=== PATIENT | female | born 1925 | race Caucasian/White ===

== ENCOUNTER 2016-10-15 14:24 | Observation (INO) | payer MEDICARE, OTHER ==
[2016-10-15] MEDS ORDERED: Zofran 4 MG/2 ML VIAL IV ONE (14:39)
[2016-10-15] MEDS ORDERED: Zofran 4 MG/2 ML VIAL ONE (14:53)
[2016-10-15 15:08] LABS: BASOPHIL % 0.1 % (0.0-0.4); Eosinophil % 0.3 % (0.00-5.0); Granulocytes % 69.4 % (36.0-66.0); Mean Cell Volume 89.1 fl (78-100); Mean Corpuscular Hemoglobin 30.1 pg (26-32); Mean Platelet Volume 10.9 fl (6-9.5); Monocytes % 8.2 % (0.0-12.0); Platelet Count 211 K/mm3 (150-450); Red Blood Count 4.48 M/mm3 (4.1-5.4); Red Cell Distribution Width 13.7 % (11.5-14.0); White Blood Count 7.1 K/mm3 (4.0-10.5)
[2016-10-15 15:14] LABS: ALBUMIN 3.9 g/dL (3.4-5.0); ANION GAP 14.6 MEQ/L (5-15); BILIRUBIN,TOTAL 0.3 mg/dL (0.2-1.0); Carbon Dioxide 25.1 mEq/L (21-32); Potassium 4.4 mEq/L (3.5-5.1); Total Protein 7.4 gm/dL (6.4-8.2)
[2016-10-15 15:20] LABS: Bacteria FEW /HPF (NEGATIVE); COMPLETE URINE MICROSCOPIC? YES; Collection Type CATH; Mucus SLIGHT /HPF (NEGATIVE); Ph 5.5 (5-6); WBC 0-2 /HPF (0-5)
--- NOTE | 2016-10-15 15:30 | ERPHSYRPT ---
- History of Present Illness Time Seen by Provider: 10/15/16 14:28 Historian: patient, family (son) Patient Subjective Stated Complaint: vomiting since noon. sinus infection for one week. Triage Nursing Assessment: to room per w/c, color normal, resp easy. abd soft, nontender, normal bowel sounds. Physician History: CC: nausea hx: [address] Ross from home. 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 She has recent sinus drng. Mild nosebleed. Today had nausea and abd pain. No diarrhea today which is unusual. Vomited several times. No fever or chills. Normal urination but has bladder prolapse. No chest pain. Severity of Pain-Max: moderate Severity of Pain-Current: moderate Allergies/Adverse Reactions: Penicillins Allergy (Mild, Verified 10/15/16 14:43) Rash Sulfa (Sulfonamide Antibiotics) [Sulfa(Sulfonamide Antibiotics)] Adverse Reaction (Severe, Verified 10/15/16 14:43) Vomiting meperidine HCl [From Demerol] Adverse Reaction (Intermediate, Verified 10/15/16 14:43) dizzy,vomiting morphine Adverse Reaction (Verified 10/15/16 14:43) Home Medications: Calcitonin,[place],Synthetic [Calcitonin-[place]] 1 spray INTRANASAL DAILY [History] Pravastatin Sodium 10 mg [Pravachol 10 MG] 10 mg PO DAILY 01/06/12 [History] Enalapril Maleate 5 mg [Vasotec 5 MG] 2.5 mg PO DAILY 05/26/13 [History] Aspirin 81 gm Chew [Baby Aspirin 81 mg Chew] 81 mg PO HS 07/10/14 [History ] Alprazolam 0.25 mg [xanAX 0.25 MG] 0.5 tab PO BID 01/29/16 [History] Hx Tetanus, Diphtheria Vaccination/Date Given: No Hx Influenza Vaccination/Date Given: Yes Hx Pneumococcal Vaccination/Date Given: Yes - Review of Systems Constitutional: Malaise, Weakness, No Fever, No Chills Eyes: No Symptoms Ears, Nose, & Throat: No Symptoms Respiratory: No Cough, No Dyspnea Cardiac: No Chest Pain Abdominal/Gastrointestinal: Abdominal Pain, Nausea, Vomiting, No Diarrhea Genitourinary Symptoms: No Dysuria Skin: No Rash Neurological: No Headache All Other Systems: Reviewed and Negative - Past Medical History Pertinent Past Medical History: Yes Neurological History: No Pertinent History ENT History: Cataracts Cardiac History: High Cholesterol, Hypertension Respiratory History: No Pertinent History Endocrine Medical History: No Pertinent History Musculoskeletal History: Arthritis GI Medical History: Diverticulitis History: No Pertinent History Psycho-Social History: Anxiety Female Reproductive Disorders: No Pertinent History Other Medical History: SHINGLes- 5/6 yrs ago - Past Surgical History Past Surgical History: Yes Neuro Surgical History: No Pertinent History Cardiac: No Pertinent History Respiratory: No Pertinent History Gastrointestinal: Appendectomy, Cholecystectomy, Colon Resection Genitourinary: No Pertinent History Musculoskeletal: No Pertinent History Female Surgical History: Hysterectomy Other Surgical History: TONSILLECTOMY, catarat surgery - Social History Smoking Status: Never smoker Exposure to second hand smoke: No Alcohol Use: None Drug Use: none Patient Lives Alone: No Significant Family History: no pertinent family hx - Female History Hx Now: No - Nursing Vital Signs Nursing Vital Signs: Initial Vital Signs Temperature 97.3 F Temperature Source Oral Pulse Rate 90 Respiratory Rate 22 Blood Pressure [Right Arm] 136/79 Pain Intensity 0 - Physical Exam General Appearance: alert Eye Exam: PERRL/EOMI Ears, Nose, Throat Exam: normal ENT inspection, moist mucous membranes Neck Exam: normal inspection, non-tender, supple Respiratory Exam: normal breath sounds, lungs clear Cardiovascular Exam: regular rate/rhythm Gastrointestinal/Abdomen Exam: soft, tenderness (diffuse with some guarding), No distention Back Exam: normal inspection, normal range of motion Extremity Exam: normal inspection, normal range of motion Neurologic Exam: alert, cooperative, No motor deficits Skin Exam: warm, dry, No rash SpO2 Interpretation: normal SpO2: 96 Oxygen Delivery: Room Air - Course Nursing assessment & vital signs reviewed: Yes EKG Interpreted by Me: RATE (89), Sinus Rhythm, NORMAL AXIS, NORMAL INTERVALS ( QTC 442), NORMAL QRS, NORMAL ST-T Ordered Tests: Active Orders 24 hr Category Date Time Status Cath for Specimen-Straight STAT Care 10/15/16 14:39 Active EKG-ER Only STAT Care 10/15/16 14:39 Active IV Insertion STAT Care 10/15/16 14:39 Active NPO (ED) STAT Care 10/15/16 14:39 Active ABDOMEN AND PELVIS W CONTRAST [CT] Stat Exams 10/15/16 14:48 Completed CBC W DIFF Stat Lab 10/15/16 14:45 Completed CMP Stat Lab 10/15/16 14:45 Completed CULTURE,URINE Stat Lab 10/15/16 15:00 Received LIPASE Stat Lab 10/15/16 14:45 Completed Lactic Acid Urgent Lab 10/15/16 14:39 Completed UA W/ MICROSCOPIC Stat Lab 10/15/16 15:00 Completed Medication Summary Discontinued Medications Generic Name Dose Route Start Last Admin Trade Name Freq PRN Reason Stop Dose Admin Famotidine 20 mg 10/15/16 16:29 10/15/16 16:32 Pepcid 20 Mg Vial IV 10/15/16 16:30 20 mg STAT ONE Administration Famotidine Confirm 10/15/16 16:30 Pepcid 20 Mg Vial Administered 10/15/16 16:31 Dose 20 mg IV .STK-MED ONE Ondansetron HCl 4 mg 10/15/16 14:39 10/15/16 14:55 Zofran 4 Mg/2 Ml Vial IV 10/15/16 14:40 4 mg STAT ONE Administration Ondansetron HCl Confirm 10/15/16 14:53 Zofran 4 Mg/2 Ml Vial Administered 10/15/16 14:54 Dose 4 mg .ROUTE .STK-MED ONE Lab/Rad Data: Laboratory Result Diagrams 10/15/16 14:45 10/15/16 14:45 Laboratory Results 10/15/16 10/15/16 10/15/16 Range/Units 15:00 14:45 14:45 WBC 7.1 (4.0-10.5) K/mm3 RBC 4.48 (4.1-5.4) M/mm3 Hgb 13.5 (12.0-16.0) gm/dl Hct 39.9 (35-47) % MCV 89.1 (78-100) fl MCH 30.1 (26-32) pg MCHC 33.8 (32-36) g/dl RDW 13.7 (11.5-14.0) % Plt Count 211 (150-450) K/mm3 MPV 10.9 H (6-9.5) fl Gran % 69.4 H (36.0-66.0) % Lymphocytes % 22.0 L (24.0-44.0) % Monocytes % 8.2 (0.0-12.0) % Eosinophils % 0.3 (0.00-5.0) % Basophils % 0.1 (0.0-0.4) % Basophils # 0.01 (0-0.4) Sodium 137 (136-145) mEq/L Potassium 4.4 (3.5-5.1) mEq/L Chloride 102 (98-107) mEq/L Carbon Dioxide 25.1 (21-32) mEq/L Anion Gap 14.6 (5-15) MEQ/L BUN 18 (9-20) mg/dL Creatinine 1.09 (0.55-1.30) mg/dl Estimated GFR 50 ML/MIN Glucose 162 H (70-110) MG/DL Lactic Acid (0.4-2.0) Calcium 9.5 (8.5-10.1) mg/dL Total Bilirubin 0.3 (0.2-1.0) mg/dL AST 20 (15-37) U/L ALT 13 (12-78) U/L Alkaline Phosphatase 78 (46-116) U/L Serum Total Protein 7.4 (6.4-8.2) gm/dL Albumin 3.9 (3.4-5.0) g/dL Lipase 80 (73-393) U/L Ur Collection Type CATH Urine Color YELLOW (YELLOW) Urine Appearance CLEAR (CLEAR) Urine pH 5.5 (5-6) Ur Specific [place] 1.025 (1.005-1.025) Urine Protein TRACE (Negative) Urine Glucose (UA) NEGATIVE (NEGATIVE) mg/dL Urine Ketones SMALL-15 (NEGATIVE) Urine Nitrite NEGATIVE (NEGATIVE) Urine Bilirubin NEGATIVE (NEGATIVE) Urine Urobilinogen 0.2 (0-1) mg/dL Urine WBC (Auto) NEGATIVE (NEGATIVE) Urine RBC (Auto) SMALL (0-5) Yasmani/ul Urine Microscopic RBC 0-2 (0-2) /HPF Urine Microscopic WBC 0-2 (0-5) /HPF Urine Bacteria FEW (NEGATIVE) /HPF Urine Mucus SLIGHT (NEGATIVE) /HPF Specimen Received 10/15/16 1500 10/15/16 Range/Units 14:39 WBC (4.0-10.5) K/mm3 RBC (4.1-5.4) M/mm3 Hgb (12.0-16.0) gm/dl Hct (35-47) % MCV (78-100) fl MCH (26-32) pg MCHC (32-36) g/dl RDW (11.5-14.0) % Plt Count (150-450) K/mm3 MPV (6-9.5) fl Gran % (36.0-66.0) % Lymphocytes % (24.0-44.0) % Monocytes % (0.0-12.0) % Eosinophils % (0.00-5.0) % Basophils % (0.0-0.4) % Basophils # (0-0.4) Sodium (136-145) mEq/L Potassium (3.5-5.1) mEq/L Chloride (98-107) mEq/L Carbon Dioxide (21-32) mEq/L Anion Gap (5-15) MEQ/L BUN (9-20) mg/dL Creatinine (0.55-1.30) mg/dl Estimated GFR ML/MIN Glucose (70-110) MG/DL Lactic Acid 1.6 (0.4-2.0) Calcium (8.5-10.1) mg/dL Total Bilirubin (0.2-1.0) mg/dL AST (15-37) U/L ALT (12-78) U/L Alkaline Phosphatase (46-116) U/L Serum Total Protein (6.4-8.2) gm/dL Albumin (3.4-5.0) g/dL Lipase (73-393) U/L Ur Collection Type Urine Color (YELLOW) Urine Appearance (CLEAR) Urine pH (5-6) Ur Specific [place] (1.005-1.025) Urine Protein (Negative) Urine Glucose (UA) (NEGATIVE) mg/dL Urine Ketones (NEGATIVE) Urine Nitrite (NEGATIVE) Urine Bilirubin (NEGATIVE) Urine Urobilinogen (0-1) mg/dL Urine WBC (Auto) (NEGATIVE) Urine RBC (Auto) (0-5) Yasmani/ul Urine Microscopic RBC (0-2) /HPF Urine Microscopic WBC (0-5) /HPF Urine Bacteria (NEGATIVE) /HPF Urine Mucus (NEGATIVE) /HPF Specimen Received - Progress Progress Note: 10/15/16 17:15 Pt continues to have nausea and is clutching the emesis bag. Zofran and pepcid given. Tests reassuring. Called Dr Ross who advised observation. Discussed with .: Marta Will see patient in: hospital (observation) Counseled pt/family regarding: lab results, diagnosis, need for follow-up, rad results - Departure Time of Disposition: 17:16 Departure Disposition: Observation Clinical Impression: Nausea and vomiting, Abdominal pain Condition: Fair Critical Care Time: No Referrals: DIANNE ROSS MD [Primary Care Provider] -
[2016-10-15] MEDS ORDERED: Pepcid 20 MG VIAL IV ONE ×2 (16:29→16:30)
--- NOTE | 2016-10-15 16:35 | XRAY ---
Indication: Abdominal pain, nausea, and vomiting. History of diverticulitis. Multiple contiguous axial images obtained through the abdomen and pelvis using 80 cc Isovue 370 contrast. Comparison: January 29, 2016. Lung bases demonstrates minimal bibasilar dependent atelectasis. Heart is not enlarged. Again small hiatal hernia. Noncontrasted stomach and bowel loops again nonobstructed. There remains scattered diverticulosis greatest in the descending and sigmoid colon today without diverticulitis. No free fluid/air. Stable intact distal sigmoid anastomosis. Again previous cholecystectomy, appendectomy, and hysterectomy. Remaining liver, pancreas, spleen, adrenal glands, kidneys, ureters, and bladder appear unremarkable. There remains mild scattered calcifications of the abdominal aorta. No AAA or pathologic retroperitoneal lymphadenopathy. Osseous structures intact again with mild degenerative changes throughout the spine and mild dextroscoliosis. Impression: 1. Stable scattered colonic diverticulosis and small hiatal hernia. 2. No new/acute intra-abdominal/pelvic abnormalities. CTDI 17.18
[2016-10-15] MEDS ORDERED: TYLENOL EXTRA STRENGTH 500 MG PO PRN (19:11)
[2016-10-15] MEDS: Zofran 4 MG/2 ML VIAL IV PRN (19:18)
[2016-10-15] MEDS: Dextrose 5%-Lr IV Solution 1000 ML 1,000 ML IV SCH (19:18)
[2016-10-15] MEDS: xanAX 0.5 MG PO SCH (21:37)
[2016-10-15] MEDS: Zocor 10MG PO SCH (21:37)
[2016-10-15] MEDS: Pepcid 20 MG VIAL IV SCH (21:37)
[2016-10-15] MEDS ORDERED: BABY ASPIRIN 81 MG CHEW PO SCH (22:00)
[2016-10-15] MEDS ORDERED: xanAX 0.25 MG PO SCH (22:00)
[2016-10-16] MEDS: Fortical 3.7 ML NASAL NS SCH (08:59)
[2016-10-16] MEDS: Pepcid 20 MG VIAL IV SCH ×2 (09:00→21:45)
[2016-10-16] MEDS: xanAX 0.5 MG PO SCH ×2 (09:01→22:22)
[2016-10-16] MEDS: VITAMIN D PO SCH (09:01)
[2016-10-16] MEDS: PLAVIX 75 MG Tablet PO SCH (09:01)
[2016-10-16] MEDS: Vasotec 5 MG PO SCH (09:01)
[2016-10-16] MEDS ORDERED: NON-FORMULARY ITEM (Cholecalciferol (Vitamin D3) [Vitamin D3] 400 UNIT) PO SCH (10:00)
[2016-10-16] MEDS ORDERED: PREVNAR 13 SYRINGE IM ONE (10:00)
[2016-10-16] MEDS ORDERED: CALCITONIN SALMON SYNTHETIC INTRANASAL SCH (10:00)
[2016-10-16] MEDS: Dextrose 5%-Lr IV Solution 1000 ML 1,000 ML IV SCH (15:19)
--- NOTE | 2016-10-16 19:49 | PCM.HP ---
History of Present Illness - Chief Complaint Chief Complaint: Nausea and Vomiting for 1-2 days History of Present Illness: is a 89 year old female came to Er with c/o nausea, vomiting and diarrhea for 2-3 datys. Patient denies any fever or chills, c/o loss of appetite and generalised abdominal pain - Review of Systems Constitutional: No Fever, No Chills Eyes: No Symptoms Ears, Nose, & Throat: No Symptoms Respiratory: No Cough, No Short Of Breath Cardiac: No Chest Pain, No Edema, No Syncope Abdominal/Gastrointestinal: Abdominal Pain, Nausea, Vomiting, Diarrhea, Appetite Changes Genitourinary Symptoms: No Dysuria Musculoskeletal: No Back Pain, No Neck Pain Skin: No Rash Neurological: No Dizziness, No Focal Weakness, No Sensory Changes Psychological: No Symptoms Endocrine: No Symptoms Hematologic/Lymphatic: No Symptoms Immunological/Allergic: No Symptoms Medications & Allergies Home Medications: Home Medication List Calcitonin,[place],Synthetic [Calcitonin-[place]] 1 spray INTRANASAL DAILY [History Confirmed 10/15/16] Pravastatin Sodium 10 mg [Pravachol 10 MG] 10 mg PO DAILY 01/06/12 [History Confirmed 10/15/16] Enalapril Maleate 5 mg [Vasotec 5 MG] 5 mg PO DAILY 05/26/13 [History Confirmed 10/15/16] Clopidogrel Bisulfate 75 mg [PLAVIX 75 MG Tablet] 75 mg PO DAILY #30 tablet 05/28/13 [Rx Confirmed 10/15/16] Aspirin 81 gm Chew [Baby Aspirin 81 mg Chew] 81 mg PO HS 07/10/14 [ History Confirmed 10/15/16] Alprazolam 0.5 mg PO BID 10/15/16 [History Confirmed 10/15/16] Cholecalciferol (Vitamin D3) [Vitamin D3] 400 unit PO DAILY 10/15/16 [History Confirmed 10/15/16] Allergies/Adverse Reactions: Allergies Allergy/AdvReac Type Severity Reaction Status Date / Time Penicillins Allergy Mild Rash Verified 10/15/16 14:43 Sulfa (Sulfonamide AdvReac Severe Vomiting Verified 10/15/16 14:43 Antibiotics) [Sulfa(Sulfonamide Antibiotics)] meperidine HCl [From Demerol] AdvReac Intermediate dizzy,vomit Verified 14:43 ing morphine AdvReac Verified 10/15/16 14:43 - Past Medical History Past Medical History: Yes Neurological History: No Pertinent History ENT History: Cataracts Cardiac History: High Cholesterol, Hypertension Respiratory History: No Pertinent History Endocrine Medical History: No Pertinent History Musculoskelatal History: Arthritis GI Medical History: Diverticulitis History: No Pertinent History Pyscho-Social History: Anxiety, Depression Reproductive Disorders: No Pertinent History Comment: SHINGLes- 5/6 yrs ago - Female History Are you now?: No - Past Surgical History Past Surgical History: Yes Neuro Surgical History: No Pertinent History Cardiac History: No Pertinent History Respiratory Surgery: No Pertinent History GI Surgical History: Appendectomy, Cholecystectomy, Colon Resection Genitourinary Surgical Hx: No Pertinent History Musculskeletal Surgical Hx: No Pertinent History Female Surgical History: Hysterectomy Other Surgical History: TONSILLECTOMY, catarat surgery - Social History Smoking Status: Never smoker Exposure to second hand smoke: No Alcohol: None Drug Use: none Significant Family History: no pertinent family hx - Physical Exam Vital Signs: Vital Signs - 24 hr Temp Pulse Resp BP Pulse Ox 10/16/16 16:00 97.7 F 66 20 121/58 96 10/16/16 12:00 97.8 F 65 20 122/58 95 10/16/16 07:57 97.8 F 63 20 113/53 96 10/16/16 04:00 97.9 F 71 17 120/50 96 10/15/16 23:30 97.8 F 70 16 101/48 93 L General Appearance: no apparent distress, alert Neurologic Exam: alert, oriented x 3, cooperative, normal mood/affect, nml cerebellar function, nml station & gait, sensation nml, No motor deficits Eye Exam: PERRL/EOMI, eyes nml inspection Ears, Nose, Throat Exam: normal ENT inspection, TMs normal, pharynx normal, moist mucous membranes Neck Exam: normal inspection, non-tender, supple, full range of motion Respiratory Exam: normal breath sounds, lungs clear, No respiratory distress Cardiovascular Exam: regular rate/rhythm, normal heart sounds, normal peripheral pulses Gastrointestinal/Abdomen Exam: soft, normal bowel sounds, tenderness ( generalised), No mass Back Exam: normal inspection, normal range of motion, No CVA tenderness, No vertebral tenderness Extremity Exam: normal inspection, normal range of motion, pelvis stable Skin Exam: normal color, warm, dry, No rash Lymphatic Exam: No adenopathy Assessment/Plan (1) Acute diverticulitis of intestine Current Visit: Yes Status: Acute Assessment & Plan: will admit patient as observation. start IV fluids, clear fluid diet. will follow Code(s): K57.92 - DVTRCLI OF INTEST, PART UNSP, W/O PERF OR ABSCESS W/O BLEED (2) Abdominal pain Current Visit: Yes Status: Acute Qualifiers: Abdominal location: generalized Qualified Code(s): R10.84 - Generalized abdominal pain Code(s): R10.9 - UNSPECIFIED ABDOMINAL PAIN (3) Nausea and vomiting Current Visit: Yes Status: Acute Qualifiers: Vomiting type: unspecified Vomiting Intractability: non-intractable Qualified Code(s): R11.2 - Nausea with vomiting, unspecified Code(s): R11.2 - NAUSEA WITH VOMITING, UNSPECIFIED
[2016-10-16] MEDS: Zofran 4 MG/2 ML VIAL IV PRN (21:39)
[2016-10-16] MEDS ORDERED: ECOTRIN 81 MG PO SCH (22:00)
[2016-10-16] MEDS: Zocor 10MG PO SCH (22:22)
[2016-10-17 07:27] VITALS: PULSE 65; O2SAT 93
[2016-10-17] MEDS: Pepcid 20 MG VIAL IV SCH (09:41)
[2016-10-17] MEDS: VITAMIN D PO SCH (09:41)
[2016-10-17] MEDS: Fortical 3.7 ML NASAL NS SCH (09:41)
[2016-10-17] MEDS: Vasotec 5 MG PO SCH (09:41)
[2016-10-17] MEDS: Dextrose 5%-Lr IV Solution 1000 ML 1,000 ML IV SCH (09:41)
[2016-10-17] MEDS: PLAVIX 75 MG Tablet PO SCH (09:41)
[2016-10-17] MEDS: xanAX 0.5 MG PO SCH (09:41)
[2016-10-17 11:44] VITALS: BP 137/58
--- NOTE | 2016-10-17 12:16 | PCM.DS ---
Discharge Summary Date of Admission: 10/15/16 17:34 Admitting Physician: DIANNE ROSS Primary Care Provider: DIANNE ROSS Allergies Allergies Penicillins Allergy (Mild, Verified 10/15/16 14:43) Rash Sulfa (Sulfonamide Antibiotics) [Sulfa(Sulfonamide Antibiotics)] Adverse Reaction (Severe, Verified 10/15/16 14:43) Vomiting meperidine HCl [From Demerol] Adverse Reaction (Intermediate, Verified 10/15/16 14:43) dizzy,vomiting morphine Adverse Reaction (Verified 10/15/16 14:43) Hospital Summary - Hospital Course Hospital Course: Chief Complaint Diagnosis Nausea and Vomiting for 1-2 days Allergies Allergy/AdvReac Type Severity Reaction Status Date / Time Penicillins Allergy Mild Rash Verified 10/15/16 14:43 Sulfa (Sulfonamide AdvReac Severe Vomiting Verified 10/15/16 14:43 Antibiotics) [Sulfa(Sulfonamide Antibiotics)] meperidine HCl [From Demerol] AdvReac Intermediate dizzy,vomit Verified 14:43 ing morphine AdvReac Verified 10/15/16 14:43 Vital Signs (Last 24 hours) Temp Pulse Resp BP BP Pulse Ox 10/17/16 11:43 97.9 F 65 18 137/58 93 L 10/17/16 09:40 126/54 10/17/16 07:27 98.2 F 65 17 99/52 93 L 10/17/16 04:00 98.0 F 70 18 115/54 95 10/17/16 00:00 20 10/16/16 20:00 98.2 F 63 14 118/57 94 L 10/16/16 16:00 97.7 F 66 20 121/58 96 Home Medications Medication Instructions Recorded Confirmed Last Taken Type Alprazolam 0.5 mg PO BID 10/15/16 10/15/16 10/15/16 09:00 History Cholecalciferol (Vitamin D3) 400 unit PO DAILY 10/15/16 10/15/16 10/15/16 09:00 History [Vitamin D3] Current Medications Generic Name Dose Route Start Last Admin Trade Name Freq PRN Reason Stop Dose Admin Acetaminophen 500 mg 10/15/16 19:11 10/15/16 19:17 Tylenol Extra Strength 500 Mg PO 11/14/16 19:10 500 mg Q6H PRN PRN Administration PAIN Alprazolam 0.5 mg 10/15/16 22:00 10/17/16 09:41 Xanax 0.5 Mg PO 11/14/16 21:59 0.5 mg BID VIANNEY Administration Aspirin 81 mg 10/16/16 22:00 10/16/16 22:22 Ecotrin 81 Mg PO 11/15/16 21:59 81 mg HS VIANNEY Administration Calcitonin [place] 0 ml 10/16/16 10:00 10/17/16 09:41 Fortical 3.7 Ml Nasal NS 11/15/16 09:59 3.7 ml DAILY VIANNEY Administration Cholecalciferol 400 unit 10/16/16 10:00 10/17/16 09:41 Vitamin D PO 11/15/16 09:59 400 unit DAILY VIANNEY Administration Clopidogrel Bisulfate 75 mg 10/16/16 10:00 10/17/16 09:41 Plavix 75 Mg Tablet PO 11/15/16 09:59 75 mg DAILY VIANNEY Administration Enalapril Maleate 5 mg 10/16/16 10:00 10/17/16 09:41 Vasotec 5 Mg PO 11/15/16 09:59 5 mg DAILY VIANNEY Administration Famotidine 20 mg 10/15/16 22:00 10/17/16 09:41 Pepcid 20 Mg Vial IV 11/14/16 21:59 20 mg Q12HT VIANNEY Administration Dextrose/Lactated Ringer's 1,000 mls @ 50 mls/hr 10/15/16 17:35 10/17/16 09: 41 Dextrose 5%-Lr Iv Solution 1000 Ml IV 11/14/16 17:34 50 mls/hr .Q20H VIANNEY Administration Ondansetron HCl 4 mg 10/15/16 17:35 10/16/16 21:39 Zofran 4 Mg/2 Ml Vial IV 11/14/16 17:34 4 mg Q6H PRN PRN Administration NAUSEA/VOMITING Simvastatin 10 mg 10/15/16 22:00 10/16/16 22:22 Zocor 10mg PO 11/14/16 21:59 10 mg HS VIANNEY Administration Discontinued Medications Generic Name Dose Route Start Last Admin Trade Name Freq PRN Reason Stop Dose Admin Alprazolam 0.125 mg 10/15/16 22:00 Xanax 0.25 Mg PO 11/14/16 21:59 BID VIANNEY Aspirin 81 mg 10/15/16 22:00 10/15/16 21:37 Baby Aspirin 81 Mg Chew PO 11/14/16 21:59 81 mg HS VIANNEY Administration Famotidine 20 mg 10/15/16 16:29 10/15/16 16:32 Pepcid 20 Mg Vial IV 10/15/16 16:30 20 mg STAT ONE Administration Famotidine Confirm 10/15/16 16:30 Pepcid 20 Mg Vial Administered 10/15/16 16:31 Dose 20 mg IV .STK-MED ONE Ondansetron HCl 4 mg 10/15/16 14:39 10/15/16 14:55 Zofran 4 Mg/2 Ml Vial IV 10/15/16 14:40 4 mg STAT ONE Administration Ondansetron HCl Confirm 10/15/16 14:53 Zofran 4 Mg/2 Ml Vial Administered 10/15/16 14:54 Dose 4 mg .ROUTE .STK-MED ONE Pneumococcal 13-Valent Conj Vacc 0.5 ml 10/16/16 10:00 10/16/16 10:33 Prevnar 13 Syringe IM 10/16/16 10:01 0.5 ml .ONCE ONE Administration Intake & Output (Last 24 hours) 10/15/16 10/16/16 10/17/16 10/18/16 11:59 11:59 11:59 11:59 Intake Total 498 1967 Balance 498 1967 Weight 63.957 kg 63.957 kg Microbiology Results (Last 24 hours) 10/15/16 15:00 Catherized Urine Culture - Final NO GROWTH Orders (Last 24 hours) Category Date Time Status Regular Diet Diet 10/16/16 Dinner Active Aspirin EC 81 mg [Ecotrin 81 mg] Med 10/16/16 22:00 Active 81 mg PO HS Patient Care Notes (Last 24 hours) 10/17/16 09:00 (created 10/17/16 11:42) Case Management Note by Lydia Calderon DISCHARGE PLAN REVIEWED, CONTINUES TO PLAN TO RETURN HOME TO PRE EPISODIC LEVEL OF [facility]. DECLINED NEEDS FOR DISCHARGE. PLANNING TO GO HOME TODAY, AWAIT MD TO ROUND. WILL CONTINUE TO FOLLOW AND ASSESS FOR ALL DC NEEDS. Initialized on 10/17/16 11:42 - END OF NOTE doing better, tolerating diet better, will discharge her home today. - Vitals & Intake/Output Vital Signs: Vital Signs Temperature 97.9 F 10/17/16 11:43 Pulse Rate 65 10/17/16 11:43 Respiratory Rate 18 10/17/16 11:43 Blood Pressure 137/58 10/17/16 11:43 O2 Sat by Pulse Oximetry 93 L 10/17/16 11:43 Intake & Output: Intake & Output 10/15/16 10/16/16 10/17/16 10/18/16 11:59 11:59 11:59 11:59 Intake Total 498 1968 Balance 498 1967 Weight 63.957 kg 63.957 kg - Lab Result Diagrams: 10/15/16 14:45 10/15/16 14:45 Discharge Exam General Appearance: no apparent distress, alert Neurologic Exam: alert, oriented x 3, cooperative, normal mood/affect, nml cerebellar function, sensation nml, No motor deficits Skin Exam: normal color, warm, dry Eye Exam: PERRL, EOMI, eyes nml inspection Ears, Nose, Throat Exam: normal ENT inspection, pharynx normal, moist mucous membranes Neck Exam: normal inspection, non-tender, supple, full range of motion Respiratory Exam: normal breath sounds, lungs clear, No respiratory distress Cardiovascular Exam: regular rate/rhythm, normal heart sounds Gastrointestinal/Abdomen Exam: soft, No tenderness, No mass Extremity Exam: normal inspection, normal range of motion Back Exam: normal inspection, normal range of motion, No CVA tenderness, No vertebral tenderness Pelvic Exam: deferred Rectal Exam: deferred Final Diagnosis/Problem List - Final Discharge Diagnosis/Problem (1) Acute diverticulitis of intestine Current Visit: Yes Status: Resolved (2) Abdominal pain Current Visit: Yes Status: Resolved (3) Nausea and vomiting Current Visit: Yes Status: Acute - Discharge Discharge Date: 10/17/16 Disposition: Home, Self-Care Condition: Stable Prescriptions: No Action Pravastatin Sodium 10 mg [Pravachol 10 MG] 10 mg PO DAILY Calcitonin,[place],Synthetic [Calcitonin-[place]] 1 spray INTRANASAL DAILY Enalapril Maleate 5 mg [Vasotec 5 MG] 5 mg PO DAILY Clopidogrel Bisulfate 75 mg [PLAVIX 75 MG Tablet] 75 mg PO DAILY #30 tablet Aspirin 81 gm Chew [Baby Aspirin 81 mg Chew] 81 mg PO HS Cholecalciferol (Vitamin D3) [Vitamin D3] 400 unit PO DAILY Alprazolam 0.5 mg PO BID Instructions: Diverticulitis, Abdominal Pain-Adult Follow up with: DIANNE ROSS MD [Primary Care Provider] - 1 Week Forms: Discharge Instructions, Patient Portal Information
--- NOTE | 2016-10-18 17:28 | PCM.DS ---
Discharge Summary Date of Admission: 10/15/16 17:34 Date of Discharge: 10/17/16 Admitting Physician: DIANNE ROSS Primary Care Provider: DIANNE ROSS Allergies Allergies Penicillins Allergy (Mild, Verified 10/15/16 14:43) Rash Sulfa (Sulfonamide Antibiotics) [Sulfa(Sulfonamide Antibiotics)] Adverse Reaction (Severe, Verified 10/15/16 14:43) Vomiting meperidine HCl [From Demerol] Adverse Reaction (Intermediate, Verified 10/15/16 14:43) dizzy,vomiting morphine Adverse Reaction (Verified 10/15/16 14:43) Hospital Summary - Hospital Course Hospital Course: Last Vital Signs Temp 97.9 F 10/17/16 11:43 Pulse 65 10/17/16 11:43 Resp 18 10/17/16 11:43 BP 137/58 10/17/16 11:43 Pulse Ox 93 L 10/17/16 11:43 Allergies Penicillins Allergy (Mild, Verified 10/15/16 14:43) Rash Sulfa (Sulfonamide Antibiotics) [Sulfa(Sulfonamide Antibiotics)] Adverse Reaction (Severe, Verified 10/15/16 14:43) Vomiting meperidine HCl [From Demerol] Adverse Reaction (Intermediate, Verified 10/15/16 14:43) dizzy,vomiting morphine Adverse Reaction (Verified 10/15/16 14:43) Chief Complaint Diagnosis Nausea and Vomiting for 1-2 days Allergies Allergy/AdvReac Type Severity Reaction Status Date / Time Penicillins Allergy Mild Rash Verified 10/15/16 14:43 Sulfa (Sulfonamide AdvReac Severe Vomiting Verified 10/15/16 14:43 Antibiotics) [Sulfa(Sulfonamide Antibiotics)] meperidine HCl [From Demerol] AdvReac Intermediate dizzy,vomit Verified 14:43 ing morphine AdvReac Verified 10/15/16 14:43 Home Medications Medication Instructions Recorded Confirmed Last Taken Type Alprazolam 0.5 mg PO BID 10/15/16 10/15/16 10/15/16 09:00 History Cholecalciferol (Vitamin D3) 400 unit PO DAILY 10/15/16 10/15/16 10/15/16 09:00 History [Vitamin D3] Current Medications Discontinued Medications Generic Name Dose Route Start Last Admin Trade Name Freq PRN Reason Stop Dose Admin Acetaminophen 500 mg 10/15/16 19:11 10/15/16 19:17 Tylenol Extra Strength 500 Mg PO 11/14/16 19:10 500 mg Q6H PRN PRN Administration PAIN Alprazolam 0.125 mg 10/15/16 22:00 Xanax 0.25 Mg PO 11/14/16 21:59 BID VIANNEY Alprazolam 0.5 mg 10/15/16 22:00 10/17/16 09:41 Xanax 0.5 Mg PO 11/14/16 21:59 0.5 mg BID VIANNEY Administration Aspirin 81 mg 10/15/16 22:00 10/15/16 21:37 Baby Aspirin 81 Mg Chew PO 11/14/16 21:59 81 mg HS VIANNEY Administration Aspirin 81 mg 10/16/16 22:00 10/16/16 22:22 Ecotrin 81 Mg PO 11/15/16 21:59 81 mg HS VIANNEY Administration Calcitonin [place] 0 ml 10/16/16 10:00 10/17/16 09:41 Fortical 3.7 Ml Nasal NS 11/15/16 09:59 3.7 ml DAILY VIANNEY Administration Cholecalciferol 400 unit 10/16/16 10:00 10/17/16 09:41 Vitamin D PO 11/15/16 09:59 400 unit DAILY VIANNEY Administration Clopidogrel Bisulfate 75 mg 10/16/16 10:00 10/17/16 09:41 Plavix 75 Mg Tablet PO 11/15/16 09:59 75 mg DAILY VIANNEY Administration Enalapril Maleate 5 mg 10/16/16 10:00 10/17/16 09:41 Vasotec 5 Mg PO 11/15/16 09:59 5 mg DAILY VIANNEY Administration Famotidine 20 mg 10/15/16 16:29 10/15/16 16:32 Pepcid 20 Mg Vial IV 10/15/16 16:30 20 mg STAT ONE Administration Famotidine Confirm 10/15/16 16:30 Pepcid 20 Mg Vial Administered 10/15/16 16:31 Dose 20 mg IV .STK-MED ONE Famotidine 20 mg 10/15/16 22:00 10/17/16 09:41 Pepcid 20 Mg Vial IV 11/14/16 21:59 20 mg Q12HT VIANNEY Administration Dextrose/Lactated Ringer's 1,000 mls @ 50 mls/hr 10/15/16 17:35 10/17/16 09: 41 Dextrose 5%-Lr Iv Solution 1000 Ml IV 11/14/16 17:34 50 mls/hr .Q20H VIANNEY Administration Ondansetron HCl 4 mg 10/15/16 14:39 10/15/16 14:55 Zofran 4 Mg/2 Ml Vial IV 10/15/16 14:40 4 mg STAT ONE Administration Ondansetron HCl Confirm 10/15/16 14:53 Zofran 4 Mg/2 Ml Vial Administered 10/15/16 14:54 Dose 4 mg .ROUTE .STK-MED ONE Ondansetron HCl 4 mg 10/15/16 17:35 10/16/16 21:39 Zofran 4 Mg/2 Ml Vial IV 11/14/16 17:34 4 mg Q6H PRN PRN Administration NAUSEA/VOMITING Pneumococcal 13-Valent Conj Vacc 0.5 ml 10/16/16 10:00 10/16/16 10:33 Prevnar 13 Syringe IM 10/16/16 10:01 0.5 ml .ONCE ONE Administration Simvastatin 10 mg 10/15/16 22:00 10/16/16 22:22 Zocor 10mg PO 11/14/16 21:59 10 mg HS VIANNEY Administration Intake & Output (Last 24 hours) 10/16/16 10/17/16 10/18/16 10/19/16 11:59 11:59 11:59 11:59 Intake Total 498 1967 Balance 498 1967 Weight 63.957 kg 63.957 kg - Vitals & Intake/Output Vital Signs: Vital Signs Temperature 97.9 F 10/17/16 11:43 Pulse Rate 65 10/17/16 11:43 Respiratory Rate 18 10/17/16 11:43 Blood Pressure 137/58 10/17/16 11:43 O2 Sat by Pulse Oximetry 93 L 10/17/16 11:43 Intake & Output: Intake & Output 10/16/16 10/17/16 10/18/16 10/19/16 11:59 11:59 11:59 11:59 Intake Total 498 1967 Balance 498 1967 Weight 63.957 kg 63.957 kg - Lab Result Diagrams: 10/15/16 14:45 10/15/16 14:45 Discharge Exam General Appearance: no apparent distress, alert Neurologic Exam: alert, oriented x 3, cooperative, normal mood/affect, nml cerebellar function, sensation nml, No motor deficits Skin Exam: normal color, warm, dry Eye Exam: PERRL, EOMI, eyes nml inspection Ears, Nose, Throat Exam: normal ENT inspection, pharynx normal, moist mucous membranes Neck Exam: normal inspection, non-tender, supple, full range of motion Respiratory Exam: normal breath sounds, lungs clear, No respiratory distress Cardiovascular Exam: regular rate/rhythm, normal heart sounds Gastrointestinal/Abdomen Exam: soft, No tenderness, No mass Extremity Exam: normal inspection, normal range of motion Back Exam: normal inspection, normal range of motion, No CVA tenderness, No vertebral tenderness Pelvic Exam: deferred Rectal Exam: deferred Final Diagnosis/Problem List - Final Discharge Diagnosis/Problem (1) Acute diverticulitis of intestine Status: Resolved Assessment & Plan: Patient was admitted with abdominal pain. Patient was diagnosed with acute uncomplicated divericulitis. Patient was hydrated, IV abx given, patient felt much better in next 48 hours and is discharged home in stable condition. (2) Abdominal pain Status: Resolved (3) Nausea and vomiting Status: Resolved - Discharge Discharge Date: 10/18/16 Disposition: Home, Self-Care Condition: Stable Prescriptions: No Action Pravastatin Sodium 10 mg [Pravachol 10 MG] 10 mg PO DAILY Calcitonin,Mid[place],Synthetic [Calcitonin-[place]] 1 spray INTRANASAL DAILY Enalapril Maleate 5 mg [Vasotec 5 MG] 5 mg PO DAILY Clopidogrel Bisulfate 75 mg [PLAVIX 75 MG Tablet] 75 mg PO DAILY #30 tablet Aspirin 81 gm Chew [Baby Aspirin 81 mg Chew] 81 mg PO HS Cholecalciferol (Vitamin D3) [Vitamin D3] 400 unit PO DAILY Alprazolam 0.5 mg PO BID Instructions: Diverticulitis, Abdominal Pain-Adult Follow up with: DIANNE ROSS MD [Primary Care Provider] - 10/24/16 9:30 am ([facility]) Forms: Discharge Instructions, Patient Portal Information
== END 2016-10-17 13:20 | disposition home or self-care (01) ==
LOC: ED 14:24 → MED SURG 17:34
PROVIDERS: ADMIT General Practice; ATTEND General Practice
DX: K57.92 Diverticulitis of intestine, part unspecified, without perforation or abscess without bleeding (principal); I10 Essential (primary) hypertension; F41.8 Other specified anxiety disorders; M19.90 Unspecified osteoarthritis, unspecified site; Z79.899 Other long term (current) drug therapy; Z90.49 Acquired absence of other specified parts of digestive tract; Z23 Encounter for immunization
CPT/HCPCS: 96374; 99285; 36000; 96375; 93005; 81000; 36415; 83690; 85025; 80053; 87086; 74177; 83605; P9612; 90670; G0009; G0378; J2405; A9270-GY